=== PATIENT | female | born 1945 | race Caucasian/White ===

== ENCOUNTER 2017-06-13 11:53 | Emergency (ER) | payer MEDICARE ==
[2017-06-13] MEDS ORDERED: STADOL 2 MG IM ONE (12:32)
[2017-06-13] MEDS ORDERED: STADOL 2 MG ONE (12:35)
--- NOTE | 2017-06-13 12:38 | ERPHSYRPT ---
- History of Present Illness Time Seen by Provider: 06/13/17 12:35 Source: patient Exam Limitations: no limitations Patient Subjective Stated Complaint: pt complain of MAHONEY for 3 days. reports she has a migraine every day. states she took a norco this morning and it did not help. reports she is out of her stadol nose spray she typically uses in this situation. Triage Nursing Assessment: pt is aox3, ambulatory to cot with no difficulties, resps are easy and non labored, skin is pink warm and dry. hand track worker are strong and equal, foot pushes are strong and equal. pain across the frontal portion of the head, photosensitivity. Physician History: pt complain of MAHONEY for 3 days. reports she has a migraine every day. states she took a norco this morning and it did not help. reports she is out of her stadol nose spray she typically uses in this situation. Patient has long history of migraines and had multiple ER visits Timing/Duration: day(s) (3) Quality: aching Head Pain Location: global Severity of Pain-Max: severe Severity of Pain-Current: severe Recent Head Trauma: no recent headache/trauma, frequent headaches, chronic headaches Modifying Factors: Improves With: exposure to light (worsen) Associated Symptoms: visual disturbance Previous symptoms: same symptoms as today Allergies/Adverse Reactions: lidocaine Allergy (Verified 11/08/15 18:36) It is the lidocaine gel placed in nose metronidazole [From Flagyl] Allergy (Verified 11/08/15 18:36) Metronidazole HCl [From Flagyl] Allergy (Verified 11/08/15 18:36) sumatriptan [From Imitrex] Allergy (Verified 11/08/15 18:36) sumatriptan succinate [From Imitrex] Allergy (Verified 11/08/15 18:36) Home Medications: Allopurinol 300 mg [Zyloprim 300 mg] 300 mg PO HS 08/25/13 [History] Aspirin EC 325 mg [Ecotrin 325 MG] 325 mg PO HS 08/25/13 [History] Escitalopram Oxalate [Lexapro] 20 mg PO DAILY 08/25/13 [History] Fenofibrate,Micronized 145 mg* [Tricor 145 MG] 145 mg PO DAILY 08/25/13 [ History] Insulin Aspart [NovoLOG Insulin] 20 units SQ AC 08/25/13 [History] Insulin Glargine [Lantus Insulin] 70 unit SQ HS 08/25/13 [History] Levothyroxine Sodium 50 Mcg [Synthroid 50 Mcg] 100 mg PO DAILY 08/25/13 [ History] Lisinopril 20 mg [Zestril 20 MG] 20 mg PO DAILY 08/25/13 [History] Metoprolol Tartrate 50 mg [Lopressor 50 MG] 50 mg PO BID 08/25/13 [History ] Quetiapine Fumarate 100 mg [Seroquel 100 MG] 100 mg PO HS 08/25/13 [ History] Butorphanol Tartrate [Stadol] 2 mg IJ UD PRN 11/08/15 [History] Furosemide 40 mg [Lasix 40 MG] 40 mg PO DAILY 11/08/15 [History] Pravastatin Sodium 40 mg PO DAILY 11/08/15 [History] Tramadol HCl 50 mg [Ultram 50 mg] 50 mg PO UD PRN 11/08/15 [History] Hx Tetanus, Diphtheria Vaccination/Date Given: Yes Hx Influenza Vaccination/Date Given: No Hx Pneumococcal Vaccination/Date Given: Yes Immunizations Up to Date: Yes - Review of Systems Constitutional: No Fever, No Chills Eyes: No Symptoms Ears, Nose, & Throat: No Symptoms Respiratory: No Cough, No Dyspnea Cardiac: No Chest Pain, No Edema, No Syncope Abdominal/Gastrointestinal: No Abdominal Pain, No Nausea, No Vomiting, No Diarrhea Genitourinary Symptoms: No Dysuria Musculoskeletal: No Back Pain, No Neck Pain Skin: No Rash Neurological: Headache, No Dizziness, No Focal Weakness, No Sensory Changes Psychological: No Symptoms Endocrine: No Symptoms All Other Systems: Reviewed and Negative - Past Medical History Pertinent Past Medical History: Yes Neurological History: Migraines ENT History: No Pertinent History Cardiac History: High Cholesterol, Hypertension Respiratory History: Sleep Apnea Endocrine Medical History: Diabetes Type II Musculoskeletal History: No Pertinent History, Osteoarthritis GI Medical History: No Pertinent History History: No Pertinent History Psycho-Social History: Depression Female Reproductive Disorders: No Pertinent History Other Medical History: MIGRAINES,LEFT KNEE SURG - Past Surgical History Past Surgical History: Yes Neuro Surgical History: No Pertinent History Cardiac: No Pertinent History Respiratory: No Pertinent History Gastrointestinal: Cholecystectomy Genitourinary: No Pertinent History Musculoskeletal: Joint Replacement, Orthopedic Surgery Female Surgical History: Mastectomy Other Surgical History: left knee replacement, 7 surgeries on left knee - Social History Smoking Status: Never smoker Exposure to second hand smoke: Yes Drug Use: none Patient Lives Alone: No - Female History Hx Now: No - Nursing Vital Signs Nursing Vital Signs: Initial Vital Signs Temperature 99 F 06/13/17 12:14 Pulse Rate 76 06/13/17 12:14 Respiratory Rate 18 06/13/17 12:14 Blood Pressure 134/84 06/13/17 12:14 O2 Sat by Pulse Oximetry 97 06/13/17 12:14 Pain Scale Pain Intensity 10 - Physical Exam General Appearance: no apparent distress Eye Exam: PERRL/EOMI Ears, Nose, Throat Exam: normal ENT inspection, moist mucous membranes Neck Exam: normal inspection, supple, full range of motion, No meningismus Respiratory Exam: normal breath sounds, lungs clear Cardiovascular Exam: regular rate/rhythm, normal heart sounds Gastrointestinal/Abdominal Exam: soft, No tenderness, No distention Mental Status Exam: alert, oriented x 3, 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 Exam: normal speech, PERRL, No facial droop Motor/Sensory Exam: no motor deficit, no sensory deficit Skin Exam: normal color, warm, dry, No rash SpO2 Interpretation: normal SpO2: 97 Oxygen Delivery: Room Air - Course Nursing assessment & vital signs reviewed: Yes Ordered Tests: Medication Summary Discontinued Medications Generic Name Dose Route Start Last Admin Trade Name Freq PRN Reason Stop Dose Admin Butorphanol Tartrate 1 mg 06/13/17 12:32 06/13/17 12:38 Stadol 2 Mg IM 06/13/17 12:33 1 mg STAT ONE Administration Butorphanol Tartrate Confirm 06/13/17 12:35 Stadol 2 Mg Administered 06/13/17 12:36 Dose 2 mg .ROUTE .STK-MED ONE Promethazine HCl 25 mg 06/13/17 12:41 06/13/17 12:47 Phenergan 25 Mg Inj IM 06/13/17 12:42 25 mg STAT ONE Administration Promethazine HCl Confirm 06/13/17 12:42 Phenergan 25 Mg Inj Administered 06/13/17 12:43 Dose 25 mg .ROUTE .STK-MED ONE - Progress Progress: improved Air Movement: good Blood Culture(s) Obtained: No Antibiotics given: No Counseled pt/family regarding: diagnosis, need for follow-up - Departure Time of Disposition: 12:49 Departure Disposition: Home Clinical Impression: Migraine Qualifiers: Migraine type: other Status migrainosus presence: without status migrainosus Intractability: not intractable Qualified Code(s): G43.809 - Other migraine, not intractable, without status migrainosus Condition: Stable Critical Care Time: No Referrals: PAULETTE SHERWOOD [Primary Care Provider] - Instructions: Migraine, Headache Additional Instructions: HEADACHE 1. After discharge from the emergency department, you should rest at home in a cool, dark, quiet place for 12-24 hours. 2. If any of the following signs or symptoms are noticed, you should be re- evaluated right away: A. Visual changes B. Stiff Neck C. Change in quality or location of pain D. Fever E. Recurrent vomiting 3. If pain medications were prescribed or given, they may cause drowsiness.
[2017-06-13] MEDS ORDERED: Phenergan 25 MG INJ IM ONE (12:41)
[2017-06-13] MEDS ORDERED: Phenergan 25 MG INJ ONE (12:42)
[2017-06-13 13:08] VITALS: BP 135/92; PULSE 70; O2SAT 96
== END 2017-06-13 13:10 | disposition home or self-care (01) ==
LOC: ED 11:53
DX: G43.809 Other migraine, not intractable, without status migrainosus (principal); E78.00 Pure hypercholesterolemia, unspecified; I10 Essential (primary) hypertension; E11.9 Type 2 diabetes mellitus without complications; Z79.899 Other long term (current) drug therapy; Z79.4 Long term (current) use of insulin
CPT/HCPCS: 96372; 99284; J0595; J2550

== ENCOUNTER 2017-08-21 19:39 | Emergency (ER) | payer MEDICARE ==
--- NOTE | 2017-08-21 20:38 | ERPHSYRPT ---
- History of Present Illness Time Seen by Provider: 08/21/17 20:37 Source: patient Exam Limitations: no limitations Patient Subjective Stated Complaint: pt states her blood sugars "have maryann going crazy". states blood sugar today has been from 180 to 41 and has been like that every day for more than a month. states she saw dr louis on july 23 and no changes were made at that time. Triage Nursing Assessment: pt alert and oriented, asnwers questions approp. pt ambulatory with slow steady gait noted. respirations nonlabored with lungs cta. no distress noted at this time. Physician History: pt states her blood sugars "have maryann going crazy". states blood sugar today has been from 180 to 41 and has been like that every day for more than a month. states she saw dr lousi on july 23 and no changes were made at that time. Timing/Duration: week(s) Associated Symptoms: denies symptoms Allergies/Adverse Reactions: lidocaine Allergy (Verified 08/21/17 20:30) It is the lidocaine gel placed in nose metronidazole [From Flagyl] Allergy (Verified 08/21/17 20:30) Metronidazole HCl [From Flagyl] Allergy (Verified 08/21/17 20:30) sumatriptan [From Imitrex] Allergy (Verified 08/21/17 20:30) sumatriptan succinate [From Imitrex] Allergy (Verified 08/21/17 20:30) Home Medications: Allopurinol 300 mg [Zyloprim 300 mg] 300 mg PO HS 08/25/13 [History] Aspirin EC 325 mg [Ecotrin 325 MG] 325 mg PO HS 08/25/13 [History] Escitalopram Oxalate [Lexapro] 20 mg PO HS 08/25/13 [History] Fenofibrate,Micronized 145 mg* [Tricor 145 MG] 145 mg PO DAILY 08/25/13 [ History] Insulin Aspart [NovoLOG Insulin] 30 units SQ AC 08/25/13 [History] Insulin Glargine [Lantus Insulin] 30 unit SQ DAILY 08/25/13 [History] Levothyroxine Sodium 50 Mcg [Synthroid 50 Mcg] 100 mg PO DAILY 08/25/13 [ History] Lisinopril 20 mg [Zestril 20 MG] 5 mg PO DAILY 08/25/13 [History] Metoprolol Tartrate 50 mg [Lopressor 50 MG] 50 mg PO BID 08/25/13 [History ] Butorphanol Tartrate [Stadol] 2 mg INTRANASAL UD PRN 11/08/15 [History] Furosemide 40 mg [Lasix 40 MG] 40 mg PO DAILY 11/08/15 [History] Albuterol Sulfate [Proair Hfa] 8.5 gm IH UD 06/13/17 [History] Ergocalciferol (Vitamin D2) [Vitamin D2] 50,000 unit PO Q7D 06/13/17 [History] Fluticasone Propionate [Flovent Diskus] 50 mcg IH BID 06/13/17 [History] Linagliptin [Tradjenta] 5 mg PO DAILY 06/13/17 [History] Potassium Chloride 10 Meq Tab* [Klor Con 10 MEQ] 10 meq PO DAILY 06/13/17 [ History] Trazodone HCl 150 mg PO HS 06/13/17 [History] Atorvastatin Calcium [Lipitor 40Mg] 40 mg PO DAILY 08/21/17 [History] Methadone HCl 10 mg [DOLOPHINE 10MG Tablet] 10 mg PO TID 08/21/17 [History ] Zonisamide [Zonegran] 300 mg PO HS 08/21/17 [History] Hx Tetanus, Diphtheria Vaccination/Date Given: Yes Hx Influenza Vaccination/Date Given: Yes (jul 2017) Hx Pneumococcal Vaccination/Date Given: Yes Immunizations Up to Date: Yes - Review of Systems Constitutional: No Fever, No Chills Eyes: No Symptoms Ears, Nose, & Throat: No Symptoms Respiratory: No Cough, No Dyspnea Cardiac: No Chest Pain, No Edema, No Syncope Abdominal/Gastrointestinal: No Abdominal Pain, No Nausea, No Vomiting, No Diarrhea Genitourinary Symptoms: No Dysuria Musculoskeletal: No Back Pain, No Neck Pain Skin: No Rash Neurological: No Dizziness, No Focal Weakness, No Sensory Changes Psychological: No Symptoms Endocrine: No Symptoms All Other Systems: Reviewed and Negative - Past Medical History Pertinent Past Medical History: Yes Neurological History: Migraines ENT History: No Pertinent History Cardiac History: High Cholesterol, Hypertension Respiratory History: Sleep Apnea Endocrine Medical History: Diabetes Type II Musculoskeletal History: No Pertinent History, Osteoarthritis GI Medical History: No Pertinent History History: No Pertinent History Psycho-Social History: Depression Female Reproductive Disorders: No Pertinent History Other Medical History: MIGRAINES,LEFT KNEE SURG - Past Surgical History Past Surgical History: Yes Neuro Surgical History: No Pertinent History Cardiac: No Pertinent History Respiratory: No Pertinent History Gastrointestinal: Cholecystectomy Genitourinary: No Pertinent History Musculoskeletal: Joint Replacement, Orthopedic Surgery Female Surgical History: Mastectomy Other Surgical History: left knee replacement, 7 surgeries on left knee - Social History Smoking Status: Never smoker Exposure to second hand smoke: Yes Drug Use: none Patient Lives Alone: No - Nursing Vital Signs Nursing Vital Signs: Initial Vital Signs Temperature 98.0 F 08/21/17 20:20 Pulse Rate 50 L 08/21/17 20:20 Respiratory Rate 18 08/21/17 20:20 Blood Pressure 150/86 08/21/17 20:20 O2 Sat by Pulse Oximetry 96 08/21/17 20:20 Pain Scale Pain Intensity 0 - Physical Exam General Appearance: no apparent distress, alert Eye Exam: PERRL/EOMI, eyes nml inspection Ears, Nose, Throat Exam: normal ENT inspection, TMs normal, pharynx normal, moist mucous membranes Neck Exam: normal inspection, non-tender, supple, full range of motion Respiratory Exam: normal breath sounds, lungs clear, No respiratory distress Cardiovascular Exam: regular rate/rhythm, normal heart sounds, normal peripheral pulses Gastrointestinal/Abdomen Exam: soft, normal bowel sounds, No tenderness, No mass Back Exam: normal inspection, normal range of motion, No CVA tenderness, No vertebral tenderness Extremity Exam: normal inspection, normal range of motion, pelvis stable Neurologic Exam: alert, oriented x 3, cooperative, normal mood/affect, nml cerebellar function, nml station & gait, sensation nml, No motor deficits Skin Exam: normal color, warm, dry, No rash Lymphatic Exam: No adenopathy SpO2: 96 Oxygen Delivery: Room Air - Course Nursing assessment & vital signs reviewed: Yes Ordered Tests: Active Orders 24 hr Category Date Time Status CBC W DIFF Stat Lab 08/21/17 20:50 Completed CMP Stat Lab 08/21/17 20:50 Completed Lab/Rad Data: Laboratory Result Diagrams 08/21/17 20:50 08/21/17 20:50 Laboratory Results 08/21/17 08/21/1708/21/17 Range/Units 20:50 20:50 20:50 WBC 7.7 (4.0-10.5) K/mm3 RBC 4.12 (4.1-5.4) M/mm3 Hgb 12.6 (12.0-16.0) gm/dl Hct 39.3 (35-47) % MCV 95.4 (78-100) fl MCH 30.6 (26-32) pg MCHC 32.1 (32-36) g/dl RDW 13.3 (11.5-14.0) % Plt Count 202 (150-450) K/mm3 MPV 11.4 H (6-9.5) fl Gran % 60.4 (36.0-66.0) % Lymphocytes % 27.4 (24.0-44.0) % Monocytes % 7.7 (0.0-12.0) % Eosinophils % 4.2 (0.00-5.0) % Basophils % 0.3 (0.0-0.4) % Basophils # 0.02 (0-0.4) Sodium 137 (136-145) mEq/L Potassium 4.4 (3.5-5.1) mEq/L Chloride 101 (98-107) mEq/L Carbon Dioxide 27.6 (21-32) mEq/L Anion Gap 12.9 (5-15) MEQ/L BUN 36 H (9-20) mg/dL Creatinine 1.61 H (0.55-1.30) mg/dl Estimated GFR 34 ML/MIN Glucose 96 (70-110) MG/DL Hemoglobin A1c 5.9 (4.5-6.2) Calcium 9.2 (8.5-10.1) mg/dL Total Bilirubin 0.50 (0.2-1.0) mg/dL AST 38 H (15-37) U/L ALT 37 (12-78) U/L Alkaline Phosphatase 56 (46-116) U/L Serum Total Protein 6.4 (6.4-8.2) gm/dL Albumin 3.5 (3.4-5.0) g/dL - Progress Progress: unchanged Counseled pt/family regarding: lab results, diagnosis, need for follow-up - Departure Time of Disposition: 21:28 Departure Disposition: Home Clinical Impression: Hypoglycemia due to type 2 diabetes mellitus Condition: Stable Critical Care Time: No Referrals: PAULETTE LOUIS [Primary Care Provider] - Instructions: Hypoglycemia Additional Instructions: During your these, ER visit, we checked out hemoglobin A1c and which appears to be 5.9, which is within normal range and you have maintained very tight blood sugar control. So you should decreased your humolog which is a rapid acting insulin to 20 units before each meal. Continue all other insulin including Lantus and other diabetes medicine. Follow-up with your primary care physician in one week.
[2017-08-21 21:00] LABS: BASOPHIL % 0.3 % (0.0-0.4); Basophil (Absolute #) 0.02 (0-0.4); Eosinophil % 4.2 % (0.00-5.0); Eosinophil (Absolute #) 0.32 (0-0.5); Granulocyte Absolute (ANC) 4.65 (1.4-6.9); Granulocytes % 60.4 % (36.0-66.0); Hematocrit 39.3 % (35-47); Hemoglobin 12.6 gm/dl (12.0-16.0); Lymphocyte (Absolute #) 2.11 (1.0-4.6); Lymphocytes % 27.4 % (24.0-44.0); Mean Cell Volume 95.4 fl (78-100); Mean Corpuscular Hemoglobin 30.6 pg (26-32); Mean Corpuscular Hgb Concent. 32.1 g/dl (32-36); Mean Platelet Volume 11.4 fl (6-9.5); Monocyte (Absolute #) 0.59 (0.0-1.3); Monocytes % 7.7 % (0.0-12.0); Platelet Count 202 K/mm3 (150-450); Red Blood Count 4.12 M/mm3 (4.1-5.4); Red Cell Distribution Width 13.3 % (11.5-14.0); White Blood Count 7.7 K/mm3 (4.0-10.5)
[2017-08-21 21:21] LABS: ALBUMIN 3.5 g/dL (3.4-5.0); ANION GAP 12.9 MEQ/L (5-15); BILIRUBIN,TOTAL 0.5 mg/dL (0.2-1.0); Calcium 9.2 mg/dL (8.5-10.1); Carbon Dioxide 27.6 mEq/L (21-32); Creatinine 1 1.61 mg/dl (0.55-1.30); Potassium 4.4 mEq/L (3.5-5.1); Total Protein 6.4 gm/dL (6.4-8.2)
[2017-08-21 21:45] VITALS: BP 123/66; PULSE 56; O2SAT 97
== END 2017-08-21 21:45 | disposition home or self-care (01) ==
LOC: ED 19:39
DX: E11.649 Type 2 diabetes mellitus with hypoglycemia without coma (principal); E78.00 Pure hypercholesterolemia, unspecified; I10 Essential (primary) hypertension
CPT/HCPCS: 36415; 80053; 82962; 83036; 85025; 99283

== ENCOUNTER 2019-10-10 07:01 | Day surgery (SDC) | payer MEDICARE ==
[~2019-10-10 07:01] MED LIST: Ak-Dilate OPHTHALMIC*** 1.065 ML, Cyclogyl 1% OPHTH SOL 5 ML 1.065 ML, GATIFLOXACIN 0.5... OP ONE; Lactated Ringers 1,000 ML IV ONE; Lactated Ringers 1,000 ML IV SCH; NON-FORMULARY ITEM OP ONE; TETRACAINE 0.5% STERI-UNIT SOL OP ONE
[2019-10-10] MEDS ORDERED: Zofran 4 MG/2 ML VIAL IV PRN (09:00)
[2019-10-10] MEDS ORDERED: ACETAZOLAMIDE 250 MG TABLET PO ONE (09:00)
[2019-10-10] MEDS ORDERED: DIPRIVAN 200 MG/20 ML IV ONE (09:37)
[2019-10-10] MEDS ORDERED: LIDOCAINE HCL 1% AMPUL 5 ML IJ ONE (10:00)
[2019-10-10] MEDS ORDERED: Epinephrine Preservative Free 1 MG/ML INTRAOP ONE (10:00)
[2019-10-10] MEDS ORDERED: BETADINE 5% OPHTHALMIC 30 ML OP ONE (10:00)
[2019-10-10] MEDS ORDERED: BSS 500 ML, Fortaz/Tazicef 1 GM** 0.2 G IO ONE ×2 (10:00)
[2019-10-10 12:03] VITALS: BP 124/66; PULSE 48
[2019-10-10 12:04] VITALS: O2SAT 94
--- NOTE | 2019-10-10 13:46 | OP ---
DATE/TIME OF OPERATION: 10/10/2019 1035 TIME DICTATED: 1256 PREOPERATIVE DIAGNOSIS: Senile cataract of right eye. POSTOPERATIVE DIAGNOSIS: Senile cataract of right eye. SURGEON: Nick Ha MD ELECTRIC DISTRIBUTION CHECKER: None. OPERATION: Cataract extraction of right eye with an intraocular lens implant. STANDARD __X__ COMPLEX ANESTHESIA: MAC. ___X___ Monitored anesthesia care in combination with topical and intra-cameral anesthesia (because of the established specific risk of reflux, arrhythmias, or an anxiety attack associated with ocular manipulation as well as difficulty of the donor services coordinator to manage such potentially catastrophic events while simultaneously attempting to complete the surgical procedure, it was deemed necessary for the patient's safety to have an anesthesiologist or a nurse metal can inspector present during the procedure whenever possible. The anesthesiologist or the nurse metal can inspector was utilized to monitor and regulate the intravenous sedation of the patient, so the patient was cooperative, relaxed, and comfortable). Topical anesthesia using Tetracaine eye drops together with intra cameral anesthesia using Lidocaine 1% MPF. The nurse was utilized to monitor the patient. ANESTHESIA PROVIDER: Juna Pace CRNA. COMPLICATIONS: None. BLOOD LOSS: None. INDICATIONS: The patient is undergoing cataract surgery in the hopes of eliminating the visual complaints and difficulty. PROCEDURE: After arriving at the facility's outpatient surgery area, an IV was started; the patient was given 5 mg of p.o. Versed. (If an anesthesia provider was not monitoring the patient) The patient was then given topical anesthetic Tetracaine eye drops. A cotton pellet was soaked into a solution of a combination of Zymaxid 0.5%, Skyler-Synephrine 2.5% and Ocufen (other drops might have been substituted referenced in the patient's record). The pellet was inserted by the RN into the lower conjunctival cul-de-sac with a sterile forceps and left for 20 minutes. The pellet was then removed by the RN with a sterile forceps before taking the patient to the operating room. The preoperative area nurse identified the patient and marked the correct eye to be operated on. I identified the correct eye to be operated on and marked it appropriately in the outpatient surgery area. The patient was then taken into the operating room. Tetracaine eye drops were installed again in the correct eye. The eyelids and the lashes and the lid margins were scrubbed with Betadine solution. One drop of the diluted Betadine solution was placed in the conjunctival cul-de-sac for 45 seconds and then was irrigated. A drop of Tetracaine Gel was placed in the conjunctival cul-de-sac. The patient's forehead was taped to secure it during the procedure. The patient was monitored. The patient was then draped in the usual way for this procedure. An eye speculum was used to separate the eyelids. The eye was then fixated and a temporal 2.5 mm incision was made in the clear cornea temporally at the limbus. Through the incision, 0.25 cc of 1% non-preserved lidocaine was injected into the anterior chamber for intracameral anesthesia. The anterior chamber was then filled with viscoelastic. The pupil was small. I felt that it would be safer to mechanically dilate the pupil. A Malyugin ring was used at this point which dilated the pupil. That was removed at the end of the procedure prior to aspiration of the viscoelastic from the anterior chamber and posterior to the intraocular lens implant. The cataract had a great amount of cortical changes. That rendered seeing the anterior capsule difficult for a safe performance of an anterior capsulotomy. I injected an air bubble into the anterior chamber. I then injected 1 ML of vision blue solution into the anterior chamber. The vision blue solution was irrigated from the anterior chamber after 30 seconds. The anterior capsule was stained which facilitated performing the anterior capsulotomy safely. After that was completed, a cystotome was introduced into the anterior chamber and a round anterior capsulotomy was performed. The capsule was removed by a forceps. Hydrodissection was next carried utilizing a 25-gauge cannula and balanced salt solution to delineate the cortical material from the capsule and the nucleus from the cortical material. The nucleus was rotated freely into the capsular bag with no difficulty. The phaco tip of the [employer] Phacoemulsifier was introduced into the anterior chamber and two grooves were made into the nucleus 90 degrees apart. Using two spatulas resulted into the nucleus being fractured into four quadrants. The phaco tip was then used to remove each quadrant of the nucleus. Viscoelastic was used during this process to protect the corneal endothelium. Once the entire nucleus was removed, the phaco tip then was removed and the irrigation tip was introduced into the eye and the cortex was removed. The posterior capsule was polished. It was noticed that there was a tear into the posterior capsule with few vitreous strands into the pupil plan. An anterior vitrectomy was performed. A 22.00 diopter, [id number], posterior chamber lens implant, was inspected and found to be grossly normal. The implant was inserted into the implant injector cartridge; Viscoelastic again was introduced into the anterior chamber, which filled the capsular bag. The implant injector's cartridge tip was placed at the limbal wound and the posterior chamber implant was released into the capsular bag and rotated appropriately. The implant was found to be into the capsular bag and it was centered. 0.2 ml of Tri-Moxi was introduced via 27 gauge cannula into the vitreous cavity through the ciliary processes. Viscoelastic was aspirated from the anterior chamber and posterior to the intraocular lens implant from the capsular bag using the irrigating tip. The anterior chamber was irrigated and filled with 5 cc antibiotic solution (500 cc of BSS plus 2 ml of Fortaz 100 mg/ml) ( if patient was not allergic to the medication). The lips of the corneal incision were hydrated using BSS solution. The anterior chamber was checked and found to be water tight. ___X___ One drop each of antibiotic, steroid and NSAID drops (refer to chart for drops used) were placed in the conjunctival cul-de-sac of the operated eye. Patient tolerated the procedure quite well and left the operating room in satisfactory condition. DISCHARGE SUMMARY: The patient was released in stable condition. The patient and those with the patient were given an instruction sheet as of how to care for the eye after surgery as well as counseling on any abnormal laboratory studies by the postoperative RN. The patient was also given an appointment card for follow-up in the office and is to call immediately for any difficulties including but not limited to pain in the eye, decreased vision, discharge from the eye, headache and or fever. DISCHARGE DIAGNOSIS: Pseudophakia of right eye.
== END 2019-10-10 12:45 | disposition home or self-care (01) ==
LOC: SDC 07:01
PROVIDERS: ATTEND Ophthalmology
DX: H25.811 Combined forms of age-related cataract, right eye (principal)
CPT/HCPCS: 82962; 99100; C1780; J0171; J2704; A9270-GY

== ENCOUNTER 2022-12-30 09:14 | Day surgery (SDC) | payer MEDICARE ==
[2022-12-30] MEDS ORDERED: Depo-Medrol 40 MG/ML IM ONE (09:15)
[2022-12-30] MEDS ORDERED: BUPIVACAINE 0.5% VIAL IJ ONE (09:15)
[2022-12-30] MEDS ORDERED: DIPRIVAN 200 MG/20 ML IV ONE (11:31)
[2022-12-30] MEDS ORDERED: Lactated Ringers 1,000 ML IV ONE (12:23)
--- NOTE | 2022-12-30 12:29 | XRAY ---
Indication: Right shoulder and subacromial bursa injection. Intraoperative fluoroscopy provided for 19 seconds. 2 digital spot image submitted for interpretation demonstrates needle projecting over right glenohumeral joint superiorly. Second needle tip subacromial. Small amount of contrast injected for both needle tip placement. Correlate with intraoperative findings/report.
--- NOTE | 2022-12-30 12:42 | XRAY ---
19 seconds of fluoroscopy was used in surgery for a right intra-articular shoulder and subacromial bursa.
== END 2022-12-30 12:05 | disposition home or self-care (01) ==
LOC: SDC-PAIN 09:14
PROVIDERS: ATTEND Psychiatry & Neurology Pain Medicine
DX: M19.011 Primary osteoarthritis, right shoulder (principal); M75.51 Bursitis of right shoulder; E11.9 Type 2 diabetes mellitus without complications; I10 Essential (primary) hypertension; Z79.899 Other long term (current) drug therapy
CPT/HCPCS: 20610; 73030; 77002; 82947; J1030; J2704; Q9966

== ENCOUNTER 2023-12-08 08:48 | Day surgery (SDC) | payer MEDICARE ==
[2023-12-08] MEDS ORDERED: BUPIVACAINE 0.5% VIAL IJ ONE (08:49)
[2023-12-08] MEDS ORDERED: Depo-Medrol 40 MG/ML IM ONE (08:49)
[2023-12-08] MEDS ORDERED: DIPRIVAN 200 MG/20 ML IV ONE (11:00)
[2023-12-08] MEDS ORDERED: Lactated Ringers 1,000 ML IV ONE (11:10)
--- NOTE | 2023-12-08 12:26 | XRAY ---
Indication: Right shoulder and subacromial bursa injection. Intraoperative fluoroscopy provided for 30 seconds. 2 digital spot image submitted for interpretation demonstrates needle tip projecting over right glenohumeral joint superiorly. Second needle tip subacromial. Small amount of contrast injected for needle tip placement. Correlate with intraoperative findings/report.
--- NOTE | 2023-12-08 12:33 | XRAY ---
30 seconds of fluoroscopy was used in surgery for a right intra-articular shoulder and subacromial bursa injection.
== END 2023-12-08 11:35 | disposition home or self-care (01) ==
LOC: SDC-PAIN 08:48
PROVIDERS: ATTEND Psychiatry & Neurology Pain Medicine
DX: M19.011 Primary osteoarthritis, right shoulder (principal); E11.9 Type 2 diabetes mellitus without complications
CPT/HCPCS: 20610; 73030; 77002; 82947; J1010; J2704; Q9966

== ENCOUNTER 2024-03-15 09:53 | Day surgery (SDC) | payer MEDICARE, OTHER ==
[2024-03-15] MEDS ORDERED: Sodium Chloride 0.9(Preservative Free) 10 ML IJ ONE (09:54)
[2024-03-15] MEDS ORDERED: Decadron 4 MG INJ IV ONE (09:54)
[2024-03-15] MEDS ORDERED: DIPRIVAN 200 MG/20 ML IV ONE (10:48)
[2024-03-15] MEDS ORDERED: Lactated Ringers 1,000 ML IV ONE (10:55)
--- NOTE | 2024-03-15 12:19 | XRAY ---
Indication: Right L4-S1 transforaminal RISSA.. Intraoperative fluoroscopy provided for 37 seconds. 4 digital spot images submitted for interpretation demonstrates posterior needle tips projecting over the expected right L4 and L5 nerve roots. Small amount of contrast injected for needle tip placement. Correlate with intraoperative findings/report.
--- NOTE | 2024-03-15 13:29 | XRAY ---
37 seconds of fluoroscopy was used in surgery for a right L4-S1 transforaminal RISSA.
== END 2024-03-15 11:22 ==
LOC: SDC-PAIN 09:53
PROVIDERS: ATTEND Psychiatry & Neurology Pain Medicine
DX: M54.16 Radiculopathy, lumbar region (principal); E11.9 Type 2 diabetes mellitus without complications
CPT/HCPCS: 64483; 64484; 72100; 77003; 82947; J1100; J2704; Q9966

== ENCOUNTER 2024-04-19 11:23 | Day surgery (SDC) | payer MEDICARE, OTHER | END 2024-04-19 12:50 | LOC: SDC-PAIN 11:23 | PROVIDERS: ATTEND Psychiatry & Neurology Pain Medicine | DX: Z53.8 Procedure and treatment not carried out for other reasons (principal); E11.9 Type 2 diabetes mellitus without complications; Z59.19 Other inadequate housing | CPT/HCPCS: 82947 ==

== ENCOUNTER 2024-05-29 22:50 | Emergency (ER) | payer MEDICARE, OTHER ==
[2024-05-29 22:53] VITALS: TEMP 96.6
--- NOTE | 2024-05-29 23:01 | ERPHSYRPT ---
- History of Present Illness Time Seen by Provider: 05/29/24 23:01 Historian: patient, EMS, old records Physician History: This is a 79-year-old morbidly obese white female patient who was brought into the emergency department by the paramedics secondary to right lower quadrant abdominal pain and right flank pain that came on suddenly and was associated with several episodes of vomiting. She is a patient of Dr. Barron. She sees pain specialist Dr. Quintero. She also has a patient of concession attendant Dr. Champagne and submarine cable equipment technician Dr. Clifford. She has no chest pain or shortness of breath today. The patient states that dull achy constant pain came on at a level of 8 out of 10 at approximately 1900 prior to arrival. Patient still has her appendix in place but she has had a cholecystectomy in the past. She has had 3- 4 episodes similar to this in the last 4 years. Each time it comes on, she vomits a few times and then the pain goes away. She has never had a colonoscopy in the past. Patient has diabetes, migraine headaches, hyperlipidemia, hypertension, depression and sleep apnea. Timing/Duration: today Quality: aching, dullness Abdominal Pain Onset Location: RLQ (Right side), flank Pain Radiation: no radiation Severity of Pain-Max: moderate Severity of Pain-Current: mild Modifying Factors: Improves With: vomiting Associated Symptoms: loss of appetite, nausea, vomiting, No chest pain, No shortness of breath Previous symptoms: same symptoms as today, no recent treatment Allergies/Adverse Reactions: metronidazole [From Flagyl] Allergy (Severe, Verified 05/29/24 23:10) vomiting/diarrhea Metronidazole HCl [From Flagyl] Allergy (Severe, Verified 05/29/24 23:10) vomiting and diarrhea sumatriptan [From Imitrex] Allergy (Severe, Verified 05/29/24 23:10) chest tightness sumatriptan succinate [From Imitrex] Allergy (Severe, Verified 05/29/24 23:10) chest tightness lidocaine Allergy (Intermediate, Verified 05/29/24 23:10) cant function It is the lidocaine gel placed in nose Home Medications: Allopurinol 300 mg [Zyloprim 300 mg] 300 mg PO DAILY 10/03/19 [History] Fenofibrate,Micronized 145 mg* [Tricor 145 MG] 145 mg PO DAILY 10/03/19 [History] Furosemide 40 mg [Lasix 40 MG] 40 mg PO DAILY 10/03/19 [History] Insulin Lispro [Humalog] 100 unit SQ TID 10/03/19 [History] Levothyroxine Sodium 100 Mcg [Synthroid 100 Mcg] 100 mcg PO DAILY 10/03/19 [History] Lisinopril 5 mg [Zestril 5 MG] 5 mg PO DAILY 10/03/19 [History] Potassium Chloride [K-Dur] 10 meq PO BID 10/03/19 [History] Ergocalciferol (Vitamin D2) [Vitamin D] 50,000 unit PO WEEKLY 10/10/19 [History] Linagliptin [Tradjenta] 5 mg PO DAILY 10/10/19 [History] Metoprolol Succinate 50 mg [Toprol Xl 50 MG] 50 mg PO BID 10/10/19 [History] Trazodone HCl 50 mg [Desyrel 50 mg] 150 mg PO HS 10/10/19 [History] Aspirin EC 81 mg [Ecotrin 81 mg] 1 tab PO DAILY 05/29/24 [History] Atorvastatin Calcium 20 mg PO HS 05/29/24 [History] Oxycodone HCl/Acetaminophen [Oxycodone-Acetaminophen 5-325] 1 tab PO QID PRN PRN 05/29/24 [History] Quetiapine Fumarate 25 mg [Seroquel 25 MG] 1 tab PO HS 05/29/24 [History] Vit A/Vit C/Vit E/Zinc/Copper [Preservision Areds Tablet] 1 tab PO BID 05/29/24 [History] Hx Tetanus, Diphtheria Vaccination/Date Given: Yes Hx Influenza Vaccination/Date Given: Yes (jul 2017) Hx Pneumococcal Vaccination/Date Given: Yes Travel Risk - International Travel Have you traveled outside of the country in past 3 weeks: No - Emerging Infectious Disease Are you exhibiting symptoms associated with any current EIDs: Yes Symptoms: Abdominal Pain - Review of Systems Constitutional: No Symptoms Eyes: No Symptoms Ears, Nose, & Throat: No Symptoms Respiratory: No Symptoms Cardiac: No Symptoms Abdominal/Gastrointestinal: Abdominal Pain, Vomiting, Appetite Changes Genitourinary Symptoms: No Symptoms Musculoskeletal: No Symptoms Skin: No Symptoms Neurological: No Symptoms Psychological: No Symptoms Endocrine: No Symptoms Hematologic/Lymphatic: No Symptoms Immunological/Allergic: No Symptoms All Other Systems: Reviewed and Negative - Past Medical History Pertinent Past Medical History: Yes Neurological History: Migraines ENT History: No Pertinent History Cardiac History: High Cholesterol, Hypertension Respiratory History: Sleep Apnea Endocrine Medical History: Diabetes Type II Musculoskeletal History: No Pertinent History, Osteoarthritis GI Medical History: No Pertinent History History: No Pertinent History Psycho-Social History: Depression Female Reproductive Disorders: No Pertinent History Other Medical History: MIGRAINES,LEFT KNEE replacement - Past Surgical History Past Surgical History: Yes Neuro Surgical History: No Pertinent History Cardiac: No Pertinent History Respiratory: No Pertinent History Gastrointestinal: Cholecystectomy Genitourinary: No Pertinent History Musculoskeletal: Joint Replacement, Orthopedic Surgery Female Surgical History: Mastectomy Other Surgical History: left knee replacement, 7 surgeries on left knee , right mastectomy - Social History Smoking Status: Never smoker Exposure to second hand smoke: Yes Drug Use: none Patient Lives Alone: No - Nursing Vital Signs Nursing Vital Signs: Initial Vital Signs Temperature 96.6 F 05/29/24 22:52 Pulse Rate 47 L 05/29/24 22:52 Respiratory Rate 18 05/29/24 22:52 Blood Pressure 120/48 05/29/24 22:52 O2 Sat by Pulse Oximetry 99 05/29/24 22:52 Pain Scale Pain Intensity 5 - Physical Exam General Appearance: no apparent distress, alert, anxiety, obese Eye Exam: PERRL/EOMI, eyes nml inspection Ears, Nose, Throat Exam: normal ENT inspection, moist mucous membranes Neck Exam: normal inspection, non-tender, supple, full range of motion Respiratory Exam: normal breath sounds, lungs clear, airway intact, No chest tenderness, No respiratory distress Cardiovascular Exam: regular rate/rhythm, normal heart sounds, normal peripheral pulses Gastrointestinal/Abdomen Exam: soft, normal bowel sounds, tenderness (Mild right lower quadrant to palpation), guarding (Mild right lower quadrant to palpation) Pelvic Exam: not done Rectal Exam: not done Back Exam: normal inspection, normal range of motion, No CVA tenderness, No vertebral tenderness Extremity Exam: normal inspection, normal range of motion, pelvis stable Neurologic Exam: alert, oriented x 3, cooperative, news clipping cutter II-XII nml as tested, normal mood/affect, nml cerebellar function, nml station & gait, sensation nml Skin Exam: normal color, warm, dry Lymphatic Exam: No adenopathy SpO2 Interpretation: normal SpO2: 99 O2 Delivery: Room Air - Course Nursing assessment & vital signs reviewed: Yes Ordered Tests: Active Orders 24 hr Category Date Time Status IV Insertion STAT Care 05/29/24 23:17 Active ABDOMEN AND PELVIS W/0 CONTRAS [CT] Stat Exams 05/29/24 23:19 Completed AMYLASE Stat Lab 05/29/24 23:30 Completed CBC W DIFF Stat Lab 05/29/24 23:30 Completed CMP Stat Lab 05/29/24 23:30 Completed UA W/RFX UR CULTURE Stat Lab 05/29/24 23:30 Completed Medication Summary Generic Name Dose Route Start Last Admin Trade Name Freq PRN Reason Stop Dose Admin Piperacillin Sod/Tazobactam 100 mls @ 200 mls/hr 05/30/24 01:05 Sod 3.375 gm/ Sodium Chloride IV 05/30/24 01:34 STAT ONE Discontinued Medications Generic Name Dose Route Start Last Admin Trade Name Freq PRN Reason Stop Dose Admin Sodium Chloride 1,000 mls @ 999 mls/hr 05/29/24 23:17 05/29/24 23:55 Sodium Chloride 0.9% 1000 Ml IV 05/30/24 00:17 999 mls/hr .Q1H1M STA Administration Sodium Chloride Confirm 05/29/24 23:38 Sodium Chloride 0.9% 1000 Ml Administered 05/29/24 23:39 Dose 1,000 mls @ ud .ROUTE .STK-MED ONE Sodium Chloride Confirm 05/29/24 23:45 Sodium Chloride 0.9% 1000 Ml Administered 05/29/24 23:46 Dose 1,000 mls @ ud .ROUTE .STK-MED ONE Morphine Sulfate 2 mg 05/29/24 23:17 Morphine Sulfate 2 Mg/Ml Inj IV 05/29/24 23:18 STAT ONE Morphine Sulfate Confirm 05/29/24 23:38 Morphine Sulfate 2 Mg/Ml Inj Administered 05/29/24 23:39 Dose 2 mg .ROUTE .STK-MED ONE Ondansetron HCl 4 mg 05/29/24 23:17 05/29/24 23:55 Ondansetron Hcl 4 Mg/2 Ml Vial IV 05/29/24 23:18 4 mg STAT ONE Administration Ondansetron HCl Confirm 05/29/24 23:38 Ondansetron Hcl 4 Mg/2 Ml Vial Administered 05/29/24 23:39 Dose 4 mg .ROUTE .STK-MED ONE Ondansetron HCl Confirm 05/29/24 23:44 Ondansetron Hcl 4 Mg/2 Ml Vial Administered 05/29/24 23:45 Dose 4 mg .ROUTE .STK-MED ONE Pantoprazole Sodium 40 mg 05/29/24 23:17 05/29/24 23:55 Pantoprazole 40 Mg Vial IV 05/29/24 23:18 40 mg STAT ONE Administration Pantoprazole Sodium Confirm 05/29/24 23:38 Pantoprazole 40 Mg Vial Administered 05/29/24 23:39 Dose 40 mg IV .STK-MED ONE Lab/Rad Data: Laboratory Result Diagrams 05/29/24 23:30 05/29/24 23:30 Laboratory Results 05/29/24 05/29/24 05/29/24 Range/Units 23:30 23:30 23:30 WBC 12.1 H (3.98-10.04) x10^3/uL RBC 4.26 (3.93-5.22) x10^6/uL Hgb 13.6 (11.2-15.7) g/dL Hct 40.4 (34.1-44.9) % MCV 94.8 (79.4-94.8) fL MCH 31.9 (25.6-32.2) pg MCHC 33.7 (32.2-35.5) g/dL RDW 12.8 (11.7-14.4) % Plt Count 192 (182-369) x10^3/uL MPV 10.9 (9.4-12.3) fL Gran % 85.9 H (34.0-71.1) % Immature Gran % (Auto) 0.5 H (0.001-0.429) % Nucleat RBC Rel Count 0.0 (0.00-0.2) % Eos # (Auto) 0.20 (0.04-0.36) x10^3/uL Immature Gran # (Auto) 0.06 H (0.001-0.031) x10^3u/L Absolute Lymphs (auto) 1.12 L (1.18-3.74) x10^3/uL Absolute Monos (auto) 0.29 (0.24-0.86) x10^3/uL Absolute Nucleated RBC 0.00 (0.00-0.012) x10^3u/L Lymphocytes % 9.3 L (19.3-51.7) % Monocytes % 2.4 L (4.7-12.5) % Eosinophils % 1.7 (0.7-5.8) % Basophils % 0.2 (0.1-1.2) % Absolute Granulocytes 10.35 H (1.56-6.13) x10^3/uL Basophils # 0.03 (0.01-0.08) x10^3/uL Sodium 139 (135-145) mmol/L Potassium 4.2 (3.5-5.1) mmol/L Chloride 103 (98-107) mmol/L Carbon Dioxide 25 (22-30) mmol/L Anion Gap 14.8 (5-15) MEQ/L BUN 46 H (7-17) mg/dL Creatinine 1.16 H (0.52-1.04) mg/dL Estimated GFR 48.3 ML/MIN Glucose 161 H (74-106) mg/dL Calcium 9.8 (8.4-10.2) mg/dL Total Bilirubin 0.50 (0.2-1.3) mg/dL AST 30 (14-36) U/L ALT 19 (0-35) U/L Alkaline Phosphatase 70 (38-126) U/L Serum Total Protein 7.1 (6.3-8.2) g/dL Albumin 4.3 (3.5-5.0) g/dL Amylase 96 (30-110) U/L Urine Color Yellow (Yellow) Urine Appearance Clear (Clear) Urine pH 7.0 (4.6-8.0) Ur Specific [place] 1.025 (1.005-1.030) Urine Protein Negative (Negative) Urine Glucose (UA) Negative (Negative) mg/dL Urine Ketones Negative (Negative) Urine Blood Negative (Negative) Urine Nitrite Negative (Negative) Urine Bilirubin Negative (Negative) Urine Urobilinogen 1.0 A (0.2) mg/dL Ur Leukocyte Esterase Negative (Negative) U Hyaline Cast (Auto) NONE SEEN (0-2) /LPF Urine Microscopic RBC 0-2 (0-5) /HPF Urine Microscopic WBC 0-2 (0-5) /HPF Ur Epithelial Cells None Seen (None Seen) /HPF Urine Bacteria None Seen (None Seen) /HPF Urine Culture Reflexed NO (NO) - Progress Progress: improved, pain not gone completely Progress Note: 05/29/24 23:36 My medical decision making and the assignment of moderate complexity to this patient's medical issue today is based on review of the patient's past medical history, reviewed patient's medication list, reviewed patient drug allergy list, history present illness and physical findings on examination. The workup includes placement of intravenous line, infusion of normal saline solution, infusion of Zofran 4 mg intravenously and 2 mg intravenous morphine if needed. In addition we will provide her with 40 mg intravenous Protonix. We will order CBC, CMP, urinalysis, amylase and lipase level and a CT scan of the abdomen pelvis without contrast. The patient stated that just prior to my evaluation of her, her pain has subsided down to a 4 out of 10. Differential diagnosis includes but is not limited to pancreatitis, colitis, diverticulitis, acute appendicitis, ureterolithiasis, pyelonephritis, urinary tract infection 05/30/24 01:09 Interpreted the patient's laboratory data results. Based on the laboratory data results, the patient does have evidence of leukocytosis. No other acute, emergent findings present. The CT scan of the abdomen pelvis without contrast was interpreted by the radiologist. I reviewed the impression and discussed the impression with the patient. There is no evidence of any stigmata of acute appendicitis in the right lower quadrant. There is sigmoid diverticulosis with suspicion of mild mucosal edema of the joshi consistent with early diverticulitis. There is a bulky right ovary/adnexal lesion. Outpatient ultrasound recommended. There are bilateral lower lobe pulmonary nodules present. CT scan chest is recommended. 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 Take your antibiotics with food. Take your other medications as prescribed. Call your primary care provider today, to make arranges for follow-up appointment for further evaluation management and to be seen in the next 3 to 5 days. Discussed with them outpatient ultrasound to evaluate your right ovary and a CT scan of the chest to evaluate your pulmonary nodules. Prescriptions: Ondansetron ODT 4 MG [Zofran Odt 4 mg] 4 mg PO Q6H PRN PRN #10 tablet PRN Reason: Vomiting Amoxicillin/Potassium Clav [Augmentin 500-125 Tablet] 1 each PO TID 7 Days #15 tablet
[2024-05-29 23:36] LABS: Absolute Neutrophil Ct (ANC) 10.35 x10^3/uL (1.56-6.13); BASOPHIL % 0.2 % (0.1-1.2); Basophil (Absolute #) 0.03 x10^3/uL (0.01-0.08); Eosinophil % 1.7 % (0.7-5.8); Hematocrit 40.4 % (34.1-44.9); Hemoglobin 13.6 g/dL (11.2-15.7); IMMATURE GRAN # 0.06 x10^3u/L (0.001-0.031); IMMATURE GRAN % 0.5 % (0.001-0.429); Lymphocyte (Absolute #) 1.12 x10^3/uL (1.18-3.74); Lymphocytes % 9.3 % (19.3-51.7); Mean Cell Volume 94.8 fL (79.4-94.8); Mean Corpuscular Hemoglobin 31.9 pg (25.6-32.2); Mean Corpuscular Hgb Concent. 33.7 g/dL (32.2-35.5); Mean Platelet Volume 10.9 fL (9.4-12.3); Monocyte (Absolute #) 0.29 x10^3/uL (0.24-0.86); Monocytes % 2.4 % (4.7-12.5); Neutrophil % 85.9 % (34.0-71.1); Platelet Count 192 x10^3/uL (182-369); Red Blood Count 4.26 x10^6/uL (3.93-5.22); Red Cell Distribution Width 12.8 % (11.7-14.4); White Blood Count 12.1 x10^3/uL (3.98-10.04)
[2024-05-29] MEDS ORDERED: Sodium Chloride 0.9% 1000 ML 0 ML ONE (23:38)
[2024-05-29] MEDS ORDERED: Zofran 4 MG/2 ML VIAL ONE ×2 (23:38→23:44)
[2024-05-29] MEDS ORDERED: MORPHINE SULFATE 2 MG INJ ONE (23:38)
[2024-05-29] MEDS ORDERED: PROTONIX 40 MG IV IV ONE (23:38)
[2024-05-29 23:45] LABS: Appearance Clear (Clear); Bacteria None Seen /HPF (None Seen); Bilirubin Negative (Negative); Blood Negative (Negative); Epithelial Cells None Seen /HPF (None Seen); Glucose, Urine Negative (Negative); Hyaline Casts NONE SEEN /LPF (0-2); Ketones Negative (Negative); Nitrite Negative (Negative); Protein,Urine Dip Negative (Negative); RBC 0-2 /HPF (0-5); Specific Gravity 1.025 (1.005-1.030); WBC 0-2 /HPF (0-5)
[2024-05-29] MEDS ORDERED: Sodium Chloride 0.9% 1000 ML 1,000 ML ONE (23:45)
[2024-05-29 23:46] LABS: Leukocyte Esterase Negative (Negative)
[2024-05-29 23:50] LABS: ALBUMIN 4.3 g/dL (3.5-5.0); ANION GAP 14.8 MEQ/L (5-15); BILIRUBIN,TOTAL 0.5 mg/dL (0.2-1.3); Calcium 9.8 mg/dL (8.4-10.2); Creatinine 1 1.16 mg/dL (0.52-1.04); EST GLOMERULAR FILTRATION RATE 48.3 ML/MIN; Potassium 4.2 mmol/L (3.5-5.1); Total Protein 7.1 g/dL (6.3-8.2)
[2024-05-29] MEDS: Sodium Chloride 0.9% 1000 ML 1,000 ML IV STA (23:55)
[2024-05-29] MEDS: Zofran 4 MG/2 ML VIAL IV ONE (23:55)
[2024-05-29] MEDS: PROTONIX 40 MG IV IV ONE (23:55)
--- NOTE | 2024-05-30 00:49 | XRAY ---
CLINICAL HISTORY: RLQ/right flank pain COMPARISON: Comparison is made with CT dated 04/21/2018 TECHNIQUE: Non-contrast CT of the abdomen and pelvis was performed, with the following protocol: axial images, and reconstructed coronal and sagittal images. No intravenous contrast was administered. One of the following dose reduction techniques was utilized for this exam: Automated exposure control, adjustment of the mA and/or kV according to patient size, and use of iterative reconstruction. FINDINGS: Suspicion of a sub-pleural nodule measuring 3 mm,in the cb-medial segment of the left lower lobe. Suspicion of a nodule measuring 5 mm in the posterior basal segment of the right lower lobe. Abdomen: Liver: Normal in size, shape, and density. No focal lesions, cysts, or masses were identified. Gallbladder and Biliary System: The gallbladder is surgically absent. Pancreas: Pancreatic head, body, and tail are visualized and appear normal in size and density. No pancreatic masses or calcifications were noted. Spleen: Normal in size, shape, and density. No splenic lesions or masses were identified. Kidneys and Adrenal Glands: Both kidneys are normal in size, shape, and position. Cortical thickness is within normal limits. No renal calculi or hydronephrosis. Adrenal glands are unremarkable. Appendix: The appendix is not well appreciated, however no significant evidence of fat stranding in the right iliac fossa. No evidence of appendiceal abscess or perforation. Pelvis: Urinary Bladder: It is only partially filled. Normal in contour and wall thickness. No intraluminal lesions. Uterus: Normal in size and contour. No masses or abnormal thickening. Ovaries: The left ovary appears bulky concerning the age of the patient, measuring 3.6 x 2.1 cm. A mixed-density area with indistinct margins in the right hemipelvis measuring 3 x 2.6 cm ( image no 70/89 axial ), could be a bulky right ovary / adnexal lesion. Vagina: Normal in contour and wall thickness. Cervix: No evidence of mass or abnormal thickening. Peritoneal and Retroperitoneal Structures: No free fluid or abnormal fluid collections were identified within the abdomen or pelvis. No lymphadenopathy was noted. Bowel: Sigmoid diverticulosis The visualized bowel loops are normal in caliber and appearance. No evidence of bowel obstruction or wall thickening. Bones and Soft Tissues: Moderate to marked degenerative changes in the visualized lumbar spine. Reduced intervertebral disc space at multiple levels of the lumbar spine with vacuum phenomenon and end plate sclerosis. Grdse one anterolisthesis of L5 to S1. Pelvic bones and soft tissues are unremarkable. No fractures or abnormal masses were identified. IMPRESSION: Sigmoid diverticulosis with suspicion of mild mucosal edema of the joshi of the sigmoid. A clinical evaluation is suggested to rule out the possibility of early diverticulitis. Interval is new. Bulky left ovary concerning the age of the patient ( 3.6 x 2.1 cm ). If clinically indicated, an ultrasound is suggested. Interval is new. A mixed-density area with indistinct margins in the right hemipelvis measuring 3 x 2.6 cm ( image no 70/89 axial ), could be a bulky right ovary / adnexal lesion. An ultrasound evaluation is suggested. An interval bulky ovary is seen in the previous study. Advanced lumbar spondylosis.Interval progression. Suspicion of pulmonary nodule, in bilateral lower lobes. If clinically warranted a dedicated CT chest is suggested. Interval stable on the right, interval new on the left side. [facility] ER was called at [phone] at 11:42 PM INSULATION SPRAYER, 05/29/2024 and [facility] ER Nurse was informed regarding the presence of Important Medical Findings on this report. Electronically Signed by: Romaine Broderick MD. (05/30/2024 00:45:01 EDT)
[2024-05-30] MEDS ORDERED: PIPERACILLIN/TAZOBACTAM IV ONE (01:20)
[2024-05-30] MEDS ORDERED: Sodium Chloride 100ML MINI-BAG PLUS 100 ML IV ONE (01:21)
[2024-05-30] MEDS: PIPERACILLIN/TAZOBACTAM 3.375 GM in Sodium Chloride 100ML MINI-BAG PLUS 100 ML IV ONE (01:24)
[2024-05-30] MEDS: MORPHINE SULFATE 2 MG INJ IV ONE (01:55)
[2024-05-30 02:10] VITALS: BP 106/53; PULSE 55; RESP 18; O2SAT 93
== END 2024-05-30 02:08 | disposition home or self-care (01) ==
LOC: ED 22:50
DX: K57.32 Diverticulitis of large intestine without perforation or abscess without bleeding (principal); N83.8 Other noninflammatory disorders of ovary, fallopian tube and broad ligament; R91.8 Other nonspecific abnormal finding of lung field; R10.31 Right lower quadrant pain; R11.2 Nausea with vomiting, unspecified; E11.9 Type 2 diabetes mellitus without complications; E78.5 Hyperlipidemia, unspecified; I10 Essential (primary) hypertension; Z79.4 Long term (current) use of insulin; Z79.891 Long term (current) use of opiate analgesic; Z79.899 Other long term (current) drug therapy
CPT/HCPCS: 36000; 36415; 74176; 80053; 81001; 82150; 85025; 96365; 96374; 96375; 99284; J2270; J2405

== ENCOUNTER 2024-09-14 16:27 | Day surgery (SDC) | payer MEDICARE, OTHER ==
[2024-09-14] MEDS ORDERED: Sodium Chloride 0.9(Preservative Free) 10 ML IJ ONE (16:28)
[2024-09-14] MEDS ORDERED: Depo-Medrol 40 MG/ML IM ONE (16:28)
[2024-09-14] MEDS ORDERED: XYLOCAINE 1% HCL 20 ML MDV IJ ONE (16:28)
--- NOTE | 2024-09-14 18:25 | XRAY ---
Indication: Lumbar RISSA. Intraoperative fluoroscopy provided for 18 seconds. 2 digital spot image submitted for interpretation demonstrates needle tip projecting posterior to lumbosacral junction. Small amount of contrast injected for needle tip placement. Correlate with intraoperative findings/report.
--- NOTE | 2024-09-15 09:23 | XRAY ---
18 seconds of fluoroscopy in surgery were used for a lumbar RISSA.
== END 2024-09-14 17:20 | disposition home or self-care (01) ==
LOC: SDC-PAIN 16:27
PROVIDERS: ATTEND Psychiatry & Neurology Pain Medicine
DX: M54.16 Radiculopathy, lumbar region (principal); E11.9 Type 2 diabetes mellitus without complications
CPT/HCPCS: 62323; 72100; 77003; 82947; Q9966

== ENCOUNTER 2024-12-06 08:17 | Day surgery (SDC) | payer MEDICARE, OTHER ==
[2024-12-06] MEDS ORDERED: BUPIVACAINE 0.5% VIAL IJ ONE (08:18)
[2024-12-06] MEDS ORDERED: Depo-Medrol 40 MG/ML IM ONE (08:18)
[2024-12-06] MEDS ORDERED: propofoL IV ONE (10:55)
--- NOTE | 2024-12-06 13:15 | XRAY ---
Indication: Right shoulder joint and subacromial bursa injection. Intraoperative fluoroscopy provided for 10 seconds. 5 digital spot image submitted for interpretation demonstrates needle tip projecting over right glenohumeral joint superiorly. Second needle tip subacromial. Small amount of contrast injected for both needle tip placement. Correlate with intraoperative findings/report.
--- NOTE | 2024-12-06 13:15 | XRAY ---
10 seconds of fluoroscopy was used in surgery for a right intra-articular shoulder and subacromial bursa injection.
--- NOTE | 2024-12-06 13:15 | XRAY ---
Indication: Left shoulder joint and subacromial bursa injection. Intraoperative fluoroscopy provided for 12 seconds. 5 digital spot image submitted for interpretation demonstrates needle tip projecting over left glenohumeral joint superiorly. Second needle tip subacromial. Small amount of contrast injected for both needle tip placement. Correlate with intraoperative findings/report.
--- NOTE | 2024-12-06 13:15 | XRAY ---
12 seconds of fluoroscopy was used in surgery for a left intra-articular shoulder and subacromial bursa injection.
== END 2024-12-06 11:37 | disposition home or self-care (01) ==
LOC: SDC-PAIN 08:17
PROVIDERS: ATTEND Psychiatry & Neurology Pain Medicine
DX: M19.012 Primary osteoarthritis, left shoulder (principal); M19.011 Primary osteoarthritis, right shoulder; M75.52 Bursitis of left shoulder; M75.51 Bursitis of right shoulder; E11.9 Type 2 diabetes mellitus without complications
CPT/HCPCS: 20610; 73030; 77002; 82947; J2704; Q9966